=== PATIENT | female | born 1960 | race Caucasian/White ===

== ENCOUNTER 2023-04-16 12:46 | Emergency (ER) | payer BC, SELFPAY ==
[2023-04-16 12:50] VITALS: BP 116/78; BP 97/55; PULSE 58; PULSE 62; RESP 14; TEMP 36.4; O2SAT 96; O2SAT 99; BMI 34.8
--- NOTE | 2023-04-16 12:53 | ED_ITS ---
HPI - Syncope General Chief Complaint: Syncope Stated Complaint: fainted, per ems Time Seen by Provider: 04/16/23 12:52 Source: patient and EMS Mode of arrival: EMS Limitations: no limitations History of Present Illness HPI narrative: After playing pickel ball, patient ate and drank, on her drive home she felt her self get lightheaded, diaphoretic. She pulled over and passed out for a short period of time. MD complaint: loss of consciousness and felt faint Onset (ago): minute(s) Prodromal symptoms: lightheaded Witnessed: Yes - by Other () Related Data Allergies Allergy/AdvReac Type Severity Reaction Status Date / Time No Known Allergies Allergy Verified 04/16/23 12:56 Review of Systems Review of Systems: Yes all other systems are reviewed and are negative Cardiovascular: Cardiovascular: Reports lightheadedness Comments: diaphoresis Neurologic: Denies Sensory deficit (Neuro) [facility] Social History Social History Smoked in Last 30 Days: No Use of substances other than those prescribed or required for medical reasons: No Advance Directives: Yes Advance Directives Information Provided: No Advance Directives on File: No Physical Exam Vital Signs: Vital Signs: Last Vital Signs Temp 97.5 F 04/16/23 12:50 Pulse 62 04/16/23 13:04 Resp 15 04/16/23 13:04 BP 97/55 L 04/16/23 13:04 Pulse Ox 92 04/16/23 13:04 O2 Del Method Room Air 04/16/23 13:04 BMI result Body Mass Index 34.8 Const: Other: looking fatigued/tired General: healthy appearing Nutritional Appearance: obese Or ientation/consciousness: oriented to person and patient oriented x3 Limit ations: no limitations HEENT: Head: Yes normal to inspection Ears: external ears normal General nose exam: Normal external nose present Mouth: Normal oral and palatal mucosa present and oropharynx normal Throat: Yes posterior oropharynx normal Eyes: General: appearance normal, both eyes and all related structures Neck: Other: supple Neck: Yes normal visual inspection Chest: Chest palpation & inspection: normal inspection of the chest Resp: Auscultation: clear to auscultation bilaterally Cardio: Jugular venous distension: no JVD Rate: regular rate Rhythm: regular rhythm Heart sounds: S1 normal heart sound present and S2 normal heart sound present GI: Inspection: Yes normal to inspection Palpation (GI): Soft to palpation, nontender and No hepatosplenomegaly present Auscultation: normal bowel sounds : General: Yes no CVA tenderness Back/Spine/Pelvis: Back: no CVA tenderness Skin: General skin exam: no rashes or lesions noted Neuro: General: oriented to person and patient oriented x3 Cranial nerves: Yes CN's II-XII intact bilaterally Motor exam (neuro): 5/5 motor strength present throughout Sensory Exam: No Sensory deficit (Neuro) Extrem: General: Yes normal to inspection Psych: Appearance: grossly normal Course Reevaluation(s) Reevaluation #1: patient looking much better BP 118/74, will dc home. Patient was playing [employer] ball in 90 degree heat Time: 15:39 Medications Administered Discontinued Medications Generic Name Dose Route Start Last Admin Trade Name Freq PRN Reason Stop Dose Admin Sodium Chloride 1,000 mls @ 500 mls/hr 04/16/23 13:00 04/16/23 13:08 Ns IVCONT 04/16/23 14:59 500 mls/hr .Q2H DE Administration Medical Decision Making Differential Diagnosis Differential Diagnoses: The differential diagnosis associated with the presentation includes (syncope, cardiac ischemia, cardiac arrythmia, dehydration, hypotension were all considered) Admission/Observation Consideration of admission/observation: Escalation of care including admission /observation considered (In this 62 yo female with syncope after exertion admission was considered) Lab Data MDM Lab Attestation statement: I reviewed the patient's lab results. 04/16/23 13:04 04/16/23 13:04 Labs: Lab Results 04/16/23 04/16/23 04/16/23 Range/Units 13:04 13:04 13:04 WBC 5.9 (4.8-10.8) X10*3/uL RBC 4.07 L (4.20-5.50) X10*6/uL Hgb 12.2 (12.0-16.0) g/dl Hct 37.9 (37.0-47.0) % MCV 93.1 (80.0-98.0) fL MCH 30.0 (27.0-33.0) pg MCHC 32.2 (31.0-35.0) g/dl RDW 13.2 (11.0-16.0) % Plt Count 280 (160-400) X10*3/uL MPV 10.5 (9.4-12.3) fL Immature Gran % (Auto) 0.3 (0.0-0.4) % Neut % (Auto) 68.8 (45-73) % Lymph % (Auto) 23.4 (20-40) % [place] % (Auto) 5.6 (2-11) % Eos % (Auto) 1.4 (0-4) % Baso % (Auto) 0.5 (0-2) % Lymph # (Auto) 1.4 (1.2-4.9) X10*3/uL [place] # (Auto) 0.3 (0.1-1.2) X10*3/uL Eos # (Auto) 0.1 (0.0-0.4) X10*3/uL Baso # (Auto) 0.0 (0.0-0.2) X10*3/uL Abs Immat Gran (auto) 0.02 (0.00-0.03) X10*3/uL Absolute Neuts (auto) 4.0 (2.0-8.3) x10*3/uL Absolute Nucleated RBC 0.000 (0.0-0.012) X10*3/uL Nucleated RBC % (auto) 0.0 (0.0-0.2) /100WBC Sodium 136 (135-145) mmol/L Potassium 4.0 (3.3-5.1) mmol/L Chloride 110 H (96-108) mmol/L Carbon Dioxide 20 L (22-29) mmol/L Anion Gap 10 L (12-20) BUN 20 H (9-16) mg/dL Creatinine 0.87 (0.5-1.4) mg/dL Estim Creat Clear Calc 79.1 Estimated GFR > 60 Random Glucose 292 H (60-115) mg/dL Calcium 9.0 (8.4-10.2) mg/dL Troponin I High Sens < 2.7 (<3.5-17.0) ng/L Independent Interpretation I performed an independent interpretation of an: EKG (sinus [address] or twave changes) Discharge Plan Discharge Clinical Impression: Syncope, Dehydration Patient Disposition: Home, Self-Care Instructions: Syncope (ED), Dehydration (ED), Liquids and Hydration for Athletes (ED) Referrals: Jenny Jack PA-C [Primary Care Provider] - 5 days
--- NOTE | 2023-04-16 12:57 | ECG_ITS ---
Test Reason : SYNCOPE Blood Pressure : / mmHG Vent. Rate : 061 BPM Atrial Rate : 061 BPM P-R Int : 136 ms QRS Dur : 086 ms QT Int : 438 ms P-R-T Axes : -02 -11 012 degrees QTc Int : 440 ms Normal sinus rhythm Normal ECG No previous ECGs available Referred By: Onesimo [facility] Electronically Signed By:SINDHU WILLIS MD
[2023-04-16 13:01] VITALS: O2SAT 96
[2023-04-16 13:04] VITALS: BP 97/55; PULSE 62; RESP 15; O2SAT 92
[2023-04-16] MEDS: 0.9 % Sodium Chloride 1,000 ML 500 ML IVCONT (13:08)
[2023-04-16 13:17] LABS: MANUAL DIFF FLAG NO
[2023-04-16 13:19] LABS: Basophils Percent Auto 0.5 % (0-2); Eosinophils Absolute Auto 0.1 X10*3/uL (0.0-0.4); Eosinophils Percent Auto 1.4 % (0-4); Hematocrit 37.9 % (37.0-47.0); Hemoglobin 12.2 g/dl (12.0-16.0); Imm Gran Abs Auto 0.02 X10*3/uL (0.00-0.03); Imm Gran Pct Auto 0.3 % (0.0-0.4); Lymphocytes Absolute Auto 1.4 X10*3/uL (1.2-4.9); Lymphocytes Percent Auto 23.4 % (20-40); Mean Corpuscular HGB Conc 32.2 g/dl (31.0-35.0); Mean Corpuscular Volume 93.1 fL (80.0-98.0); Mean Platelet Volume 10.5 fL (9.4-12.3); Monocytes Absolute Auto 0.3 X10*3/uL (0.1-1.2); Monocytes Percent Auto 5.6 % (2-11); Neutrophils Percent Auto 68.8 % (45-73); Platelet Count 280 X10*3/uL (160-400); Red Blood Count 4.07 X10*6/uL (4.20-5.50); Red Cell Distribution Width 13.2 % (11.0-16.0); White Blood Count 5.9 X10*3/uL (4.8-10.8)
[2023-04-16 13:52] LABS: Anion Gap 10 (12-20); Blood Urea Nitrogen 20 mg/dL (9-16); Carbon Dioxide 20 mmol/L (22-29); Chloride 110 mmol/L (96-108); Creatinine Clr Calc Pharmacy 79.1; Estimated Glomerular Filt Rate > 60; Glucose Random 292 mg/dL (60-115); Sodium 136 mmol/L (135-145)
[2023-04-16 14:12] LABS: Troponin-I High Sensitivity < 2.7 ng/L (<3.5-17.0)
[2023-04-16 15:58] VITALS: BP 118/71; PULSE 62; RESP 17; TEMP 36.2; O2SAT 98
== END 2023-04-16 16:12 | disposition home or self-care (01) ==
PROVIDERS: Emergency Provider Emergency Medicine; PCP Physician Assistant
DX: R55 Syncope and collapse (principal); E86.0 Dehydration
CPT/HCPCS: 36415; 80048; 84484; 85025; 93005; 96360; 96361; 99284; 99285